=== PATIENT | male | born 1955 | race Caucasian/White ===

== ENCOUNTER 2018-08-10 00:25 | Emergency (ER) | payer MEDICARE, BC ==
[~2018-08-10] VITALS: Ht 175.3 cm; Wt 84.2 kg
[2018-08-10 00:48] VITALS: BP 179/100; PULSE 80; RESP 21; Ht 175.3 cm; Wt 84.2 kg
--- NOTE | 2018-08-10 01:43 | ERD ---
ER Documentation Chief Complaint Chief Complaint C/O SPIDER BITE TO RT HAND TODAY, C/O PAIN, SWELLING AND REDNESS HPI This is a 63-year-old male who presents emergency department with complaints of right hand spider bite started today. Does not know his last tetanus shot. Denies headache, head injury, loss of consciousness, dizziness, neck pain, neck stiffness, throat pain, difficulty swallowing, difficulty breathing lying flat, shoulder pain, chest pain, back pain, abdominal pain, nausea, vomiting, constipation, diarrhea, urinary symptoms, loss of bowel and bladder control, trauma, injury, falls, difficulty walking due to pain, numbness or tingling sensation, calf pain, recent travel, recent major surgery in the last 3 weeks, calf pain, recent long travel, recent exposure to any illness, recent antibiotic use in the last 3 months, fever, chills, seizures. Past medical history: Denies. Surgical history: Denies. Social: Denies smoking, use of alcoholic beverages, use of illegal drugs. ROS All systems reviewed and are negative except as per history of present illness. Medications Home Meds Active Scripts Ibuprofen* (Motrin*) 800 Mg Tab, 800 MG PO Q6H PRN for PAIN AND OR ELEVATED TEMP, #20 TAB Prov:ARAONBENPATRICK 08/10/18 Sulfamethoxazole/Trimethoprim* (Bactrim Ds* Tablet) 1 Each Tablet, 1 TAB PO BID, #14 TAB Prov:PATRICK GEORGE F 08/10/18 Clindamycin Hcl* (Clindamycin Hcl*) 300 Mg Capsule, 300 MG PO TID for 10 Days, CAP Prov:FAISALLISETPATRICK F 08/10/18 Allergies Allergies: Coded Allergies: Unknown: Unable to obtain (Unverified , 08/10/18) Physical Exam Vitals Vital Signs Date Temp Pulse Resp B/P (MAP) Pulse Ox O2 O2 Flow FiO2 Time Delivery Rate 08/10/18 97.9 80 21 179/100 98 00:48 (126) Physical Exam Const: No acute distress Head: Atraumatic Eyes: Normal Conjunctiva ENT: Normal External Ears, Nose and Mouth. Neck: Full range of motion. No meningismus. Resp: Clear to auscultation bilaterally Cardio: Regular rate and rhythm, no murmurs Abd: Soft, non tender, non distended. Normal bowel sounds Skin: No petechiae or rashes. Right hand has a skin bite fredy to the volar area measuring approximately 1 cm in diameter with mild redness. No induration. Has good and full function of his right hand. Right wrist is unremarkable. Back: No midline or flank tenderness Ext: No cyanosis, or edema Neur: Awake and alert. No neurological deficits. Psych: Normal Mood and Affect Results 24 hrs Current Medications Medications Dose Sig/Meghan Start Time Status Last (Trade) Ordered Route PRN Stop Time Admin Dose Reason Admin Diphtheria/ 0.5 ml ONCE ONCE 08/10/18 DC 08/10/18 Tetanus/Acell IM* 02:00 02:03 Pertussis 08/10/18 02:01 (Adacel) Clindamycin 600 mg ONCE ONCE 08/10/18 Cancel Phosphate IM 02:00 (Cleocin) 08/10/18 02:01 Clindamycin 600 mg ONCE ONCE 08/10/18 DC 08/10/18 Phosphate IM 01:54 02:02 (Cleocin) 08/10/18 01:55 Procedures/MDM Diagnostic tests: Clinical exam. This case was discussed with my supervising physician, Dr. Javier Kirby who agreed my medical decision making. Treatment: Adacel IM. Clindamycin IM. Re-evaluation: Denies pain. Has good and full function of his right hand. Differential diagnosis I have low suspicion for sepsis, tenosynovitis, flexor tendon abscess, septic joint. Final diagnosis: Bite wound. Infected bite wound. Prescription: Clindamycin. Bactrim. Motrin. Follow-up with PCP in the next 24-48 hours. Come back here in the emergency department for any new symptoms or any worsening symptoms. All questions and concerns were answered. Patient and family members verbalized understanding and agreed with plan of care. Hemodynamically stable on discharge. Departure Diagnosis: Primary Impression: Bite wound Additional Impression: Infected bite wound Condition: Stable Additional Instructions: Follow-up with PCP in the next 24-48 hours. Come back here in the emergency department for any new symptoms or any worsening symptoms. PATRICK GEORGE Aug 10, 2018 01:43
[2018-08-10] MEDS ORDERED: CLIN300C10 PO (01:52)
[2018-08-10] MEDS ORDERED: IBUP800T48 PO (01:52)
[2018-08-10] MEDS ORDERED: SULF1TAB31 PO (01:52)
[2018-08-10] MEDS ORDERED: CLINDAMYCIN 300 MG INJ IM ONE (01:54)
[2018-08-10] MEDS ORDERED: CLINDAMYCIN 600 MG INJ IM ONE (02:00)
[2018-08-10] MEDS ORDERED: DIPHTH/TET/ACEL PERTUSS (ADULT) 0.5 ML VIAL IM* ONE (02:00)
== END 2018-08-10 03:19 | disposition home or self-care (01) ==
LOC: FTE 00:25
DX: S61.451A Open bite of right hand, initial encounter (principal); L08.9 Local infection of the skin and subcutaneous tissue, unspecified; W57.XXXA Bitten or stung by nonvenomous insect and other nonvenomous arthropods, initial encounter; Z23 Encounter for immunization
CPT/HCPCS: 90471; 90715; 96372